=== PATIENT | male | born 1980 | race Caucasian/White ===

== ENCOUNTER 2020-09-28 01:40 | Emergency (ER) | payer OTHER ==
[~2020-09-28] VITALS: Ht 182.9 cm; Wt 84.0 kg
--- NOTE | 2020-09-28 01:44 | PHYS DOC ---
Adult General HPI HPI Patient is an otherwise healthy 4-year-old male, with a past medical history significant for low back pain who presents for low back pain. States he is in the and was lifting something earlier and felt a twinge in his left lower back, and has a dull achy pain, 6 out of 10 with some cramping and spasms. Denies any other injuries. Denies any numbness/weakness/tingling. Denies any urinary retention or incontinence. States he is able to sit, stand and walk. States he did not take anything for the pain. Review of Systems Review of Systems Review of systems otherwise unremarkable except noted in HPI Physical Exam Physical Exam Constitutional: Well developed, well nourished, no acute distress, non-toxic appearance. [] HENT: Normocephalic, atraumatic, Eyes: conjunctiva normal, no discharge. [] Neck: Normal range of motion, no tenderness, supple, no stridor. [] Cardiovascular:Heart rate regular rhythm, no murmur [] Lungs & Thorax: Bilateral breath sounds clear to auscultation [] Abdomen: Bowel sounds normal, soft, no tenderness, no masses, no pulsatile masses. [] Skin: Warm, dry, no erythema, no rash. [] Back: Mild lumbar paraspinal muscle tenderness and spasm with no obvious de formities or bruising. Range of motion normal. Neurovascular exam intact. Extremities: No tenderness, no cyanosis, no clubbing, ROM intact, no edema. [] Neurologic: Alert and oriented X 3, normal motor function, normal sensory function, able to sit, stand and walk without issue. No focal deficits noted. [] Psychologic: Affect normal, judgement normal, mood normal. [] EKG EKG [] Radiology/Procedures Radiology/Procedures [] Heart Score C/O Chest Pain: No Risk Factors: Risk Factors: DM, Current or recent (<one month) smoker, HTN, HLP, family history of CAD, obesity. Risk Scores: Risk Factors: DM, Current or recent (<one month) smoker, HTN, HLP, family history of CAD, obesity. Course & Med Decision Making Course & Med Decision Making Patient is a 40-year-old male who presents with low back pain Vital signs not concerning. Physical exam noted above. Given oral pain medicine and oral muscle relaxer. Discussed symptom management at home. Advised to follow-up in the morning with primary care physician to discuss further evaluation and treatment an MRI. Gave strict return precautions to the ED. Patient grateful, verbalized understanding and agreed with plan of discharge. Dago Disclaimer Dago Disclaimer This electronic medical record was generated, in whole or in part, using a voice recognition dictation system. Departure Departure: Impression: Primary Impression: Low back pain Disposition: HOME / SELF CARE / HOMELESS Condition: GOOD Referrals: GOPAL BARNARD DO (PCP) Patient Instructions: Back Pain, Adult Additional Instructions: Thank you for coming into the emergency department tonight and allowing us to take care of you. Please read all the attached information above carefully to go back over things we discussed. As discussed you can use Tylenol, ibuprofen, Benadryl and ice at home as needed and use your muscle relaxers as prescribed. Please call your primary care physician in the morning to discuss your ED visit, set up a follow-up and discuss further evaluation, treatment and need for MRI. Please come back to the ED with new or concerning symptoms as discussed. Scripts Cyclobenzaprine Hcl (CYCLOBENZAPRINE HCL) 10 Mg Tablet 1 TAB PO TID PRN for MUSCLE SPASMS for 5 Days, #15 TAB Prov: DANIELLE HIGHTOWER MD 09/28/20 DANIELLE HIGHTOWER MD Sep 28, 2020 01:44
[2020-09-28 02:00] VITALS: BP 139/81
[2020-09-28] MEDS ORDERED: diazePAM 5 MG TABLET. PO ONE (03:00)
[2020-09-28] MEDS ORDERED: ACETAMINOPHEN 500 MG TABLET PO ONE (03:00)
[2020-09-28] MEDS ORDERED: KETOROLAC 30 MG/ML VIAL. IM ONE (03:00)
[2020-09-28] MEDS ORDERED: oxyCODONE/APAP 5/325 1 TAB TABLET PO ONE (03:00)
[2020-09-28] MEDS ORDERED: CYCL-331 PO (03:32)
== END 2020-09-28 03:55 | disposition home or self-care (01) ==
LOC: ER 01:40
DX: M54.5 Low back pain (principal); M62.838 Other muscle spasm
CPT/HCPCS: 96372; 99284; J1885